=== PATIENT | male | born 1985 | race Caucasian/White ===

== ENCOUNTER → 2020-05-11 16:55 | Outpatient (CLI) | payer OTHER, SELFPAY ==
--- NOTE | ~2020-05-11 | MR_ITS ---
EXAMINATION: MR lumbar spine wo con DATE: 05/11/2020 17:46 INDICATION: Chronic right-sided low back pain with right-sided sciatica. TECHNIQUE: Magnetic resonance imaging (MRI) of the lumbar spine was performed without intravenous con trast. Sequences included sagittal T2-weighted FSE, sagittal T2-weighted FS FSE, sagittal T1-weighted FSE, and axial T2-weighted FSE. COMPARISON: None FINDINGS: There is 2 mm retrolisthesis of L4 on L5 and L5 on S1. Vertebral body heights are normal. I ntervertebral disc heights are normal. The distal spinal cord signal intensity is normal. The conus m edullaris is at L1. The following disc levels are specifically discussed: L1-L2: The disc does not extend beyond the endplate margin. There is no facet joint osteoarthritis. T here is no neural foraminal stenosis. There is no central canal stenosis. L2-L3: The disc does not extend beyond the endplate margin. There is mild bilateral facet joint osteo arthritis. There is no neural foraminal stenosis. There is no central canal stenosis. L3-L4: The disc does not extend beyond the endplate margin. There is mild bilateral facet joint osteo arthritis. There is no neural foraminal stenosis. There is no central canal stenosis. L4-L5: The disc does not extend beyond the endplate margin. There is no facet joint osteoarthritis. T here is no neural foraminal stenosis. There is no central canal stenosis. L5-S1: The disc is bulging and has an annular fissure. There is mild bilateral facet joint osteoarthr itis. There is mild left neural foraminal stenosis. There is mild central canal stenosis. IMPRESSION: 1. Mild lumbar spondylosis. Reviewed, dictated and finalized at location A. IMPRESSION: 1. Mild lumbar spondylosis.
== END ==
PROVIDERS: PCP Family Medicine; Visit Provider Orthopaedic Surgery
DX: M54.41 Lumbago with sciatica, right side (principal); G89.29 Other chronic pain; M47.896 Other spondylosis, lumbar region
CPT/HCPCS: 72148

== ENCOUNTER 2024-11-04 17:00 | Emergency (ER) | payer OTHER, SELFPAY ==
--- NOTE | ~2024-11-04 | XR_ITS ---
XR chest 2V Ordering provider: Leonardo Barton MD History: 39 years Male with . CP/heartburn . Comparison: None. FINDINGS: MEDIASTINUM: The cardiac silhouette is not enlarged. LUNGS: No infiltrates, effusions or pneumothorax. OTHER: No free air under the diaphragm. IMPRESSION: No acute cardiopulmonary pathology. Reviewed, dictated and finalized at location A.
--- NOTE | ~2024-11-04 | US_ITS ---
EXAM: ABDOMEN ULTRASOUND HISTORY: elevated LFT, epigastric pain COMPARISON: None FINDINGS: LIVER: The liver is unremarkable in echogenicity and size measuring 16 cm in longitudinal dimension. The portal vein is patent, demonstrating hepatopedal flow. GALLBLADDER: Multiple stones are identified within the gallbladder, which is otherwise unremarkable. The stones are bulky and mobile. No significant gallbladder wall thickening or pericholecystic fluid. BILE DUCTS: Common bile duct measures 4mm. PANCREAS: Limited evaluation of the pancreas secondary to overlying bowel gas IMPRESSION: Cholelithiasis, without ultrasound evidence of cholecystitis. Reviewed, dictated and finalized at location A.
--- NOTE | 2024-11-04 17:01 | ECG_ITS ---
Test Date: 2024-11-04 17:15:38 Measurements Intervals [place] Rate: 82 P: 48 [place]: 155 QRS: -5 QRSD: 100 T: 12 QT: 357 QTc: 418 Interpretive Statements SINUS RHYTHM POSSIBLE LEFT ATRIAL ENLARGEMENT INCOMPLETE RIGHT BUNDLE BRANCH BLOCK DELAYED PRECORDIAL R/S TRANSITION BORDERLINE T WAVE ABNORMALITY- INFERIOR LEADS BORDERLINE ECG No previous ECG available for comparison Electronically Signed On 11-04-2024 19:06:57 CDT by Marc Mancini D.O.
[2024-11-04 17:07] VITALS: BP 138/94; PULSE 87; RESP 16; TEMP 36.6; O2SAT 96
[2024-11-04 17:24] LABS: Basophils Percent Auto 0.2 % (0.2-1.2); Eosinophils Absolute Auto 0.1 K/mm3 (0-0.3); Eosinophils Percent Auto 0.9 % (0-4.4); Hematocrit 45.4 % (42.0-52.0); Immature Granulocyte Absolute 0.02 K/mm3 (0.00-0.031); Immature Granulocyte Percent A 0.3 % (0-0.5); Lymphocytes Percent Auto 24.7 % (18.3-44.2); Mean Corpuscular Hemoglobin 29.1 pg (26-34); Mean Platelet Volume 10.3 fl (7.4-10.4); Monocytes Absolute Auto 0.6 K/mm3 (0.1-0.6); Monocytes Percent Auto 9.7 % (2.6-8.5); Neutrophils Absolute Auto 4.2 K/mm3 (1.3-6.7); Neutrophils Percent Auto 64.2 % (45.5-73.1); Platelet Count Result 254 k/mm3 (150-375); Red Blood Count 5.16 M/mm3 (4.6-6.20); Red Cell Distribution Width 13.2 % (11.5-14.5); White Blood Count 6.5 K/mm3 (4.5-10.0)
--- OUTSIDE RECORDS SUMMARY | 2024-11-04 17:29 | XMS_ITS | Clinical Summary ---
Author Organization [address] Address [address] [place] [id number] Care Team Providers Care Wellness Instructor Name Role Phone Colin Huntley MD Primary Care Provid er Allergies No known active allergies Medications escitalopram (LEXAPRO) 10 mg tabletIndicatio ns:Generalized anxiety disorder Take 1.5 tablets (15 mg total) by mouth daily 45 tablet 11/10/2023 Active benzonatate (TESSALON) 100 mg capsuleIndicati ons:Cough Take 1 capsule (100 mg total) by mouth 3 (three) times a day as needed for cough 60 capsule 1 05/25/2024 Active tirzepatide, weight loss, (Zepbound) 5 mg/0.5 mL pen injector Inject 0.5 mL (5 mg total) under the skin every 7 days 2 mL 2 07/08/2024 Active Active Problems Problem Noted Date Diagnosed Date Acute bilateral thoracic back pain 02/11/2024 Assessment & Plan (02/11/2024 10:21 AM CDT): Seems muscular; not getting relief with OTC NSAIDs, stretching, etc. Will start Medrol dose pack and can use muscle relaxer as needed. F/u if not improving. Continue activity as tolerated. Ice/heat, stretching. Chronic right-sided low back pain 05/12/2020 Right hip pain 04/26/2020 Anxiety 09/29/2018 Encounters Date Type Department Care Team Description 11/04/2024 Telephone [facility] Family Medicine [address] [place] [phone] Colin Huntley MD from Last 3 Months Immunizations Immunization Administration Dates Next Due Hep B, Adolescent or Pediatric 11/12/1996,1995,04/15/1996 Influenza, Quadrivalent, Spl it, Preservative Free, Intramuscular 05/31/2021 Influenza, Unspecified 05/13/2024,2022(Deferred: Patient Refused),04/13/2023,04/13/2022, 020 Pfizer SARS-CoV-2 Monovalent Vaccination (12+ Yrs) PURPLE 10/25/2020,10/01/2020 Tdap 04/10/2016,12/04/2013 Surgical History Surgery Date Site/Laterality Comments TONSILLECTOMY VASECTOMY 10/12/2022 Medical History Medical History Date Comments Anxiety Lumbar facet arthropathy Retrolisthesis of vertebrae 2 mm retrolisthesis of L4 on L5 and L5 on S1 Foraminal stenosis of lumbar region Mild left L5-S1 Family History Medical History Relation Name Comments Heart attack Father Sami Hypertension Father Sami Relation Name Status Comments Father Sami Alive Mother Alive Social History Tobacco Use Types Packs/Day Years Used Date Smoking Tobacco: Never Smokeless Tobacco: Never Tobacco Cessation:Counseling Given: Not Answered Alcohol Use Standard Drinks/Week Comments Not Currently 0 (1 standard drink = 0.6 oz pur e alcohol) AUDIT-C Answer Date Recorded Q1: How often do you have a drink containing alcohol? Never 03/22/2024 Q2: How many drinks containi ng alcohol do you have on a typical day when you are drinking? Patient does not drink Q3: How often do you have si x or more drinks on one occasion? 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 Not on file Not on file Obstetrics History Last Filed Vital Signs Vital Sign Reading Time Taken Comments Blood Pressure 118/82 05/25/2024 7:02 AM SANDER WOODEN PENCILS Pulse 80 05/25/2024 7:02 AM SANDER WOODEN PENCILS Temperature 36 C (96.8 F) 05/25/2024 7:02 AM SANDER WOODEN PENCILS Respiratory Rate 18 05/25/2024 7:02 AM SANDER WOODEN PENCILS Oxygen Saturation 99% 05/25/2024 7:02 AM SANDER WOODEN PENCILS Inhaled Oxygen Concentration - - Weight 107.9 kg (237 lb 14.4 oz) 05/25/2024 7:02 AM SANDER WOODEN PENCILS Height 188 cm (6' 2 ) 05/25/2024 7:02 AM SANDER WOODEN PENCILS Body Mass Index 30.54 05/25/2024 7:02 AM SANDER WOODEN PENCILS Plan of Treatment Health Maintenance Due Date Last Done Comments Hepatitis C Screening 1985 Covid-19 Vaccine ( season) 2024 06/13/2021, 10/25/2020, 10/01/2020 Regular Well Visit/Exam 18-64 09/30/2024 10/01/2023, 05/31/2021, 05/31/2021, Additional history exists Depression Screening 03/22/2025 03/22/2024, 02/25/2024, 02/11/2024, Additional history exists DTaP/Tdap/Td Vaccine (3 - Td or Tdap) 04/10/2026 04/10/2016, 12/04/2013 Hepatitis B Screening Completed 11/12/1996 , 05/27/1996, 04/15/1996 Influenza Vaccine Completed 05/13/2024, , 04/13/2022, Additional history exists HPV Vaccines Aged Out No longer eligi ble based on patient's age to complete this topic Pneumococcal vaccine <65 Aged Out No longer eligible based on patient's age to complete this topic Varicella Vaccines Discontinued Insurance [facility] Care Teams Wellness Instructor Relationship Specialty Start Date End Date Colin Huntley MD [address] [place] [address] PCP - General Family Medicine 12/24/18
--- OUTSIDE RECORDS SUMMARY | 2024-11-04 17:29 | XMS_ITS | Encounter Summary ---
Author Organization [facility] Healthcare Address [address] [place] [address] Care Team Providers Care Generation Engineer Name Role Phone Colin Huntley MD Primary Care Provid er Encounter Details Date Type Department Care Team (Late st Contact Info) Description 11/04/2024 Telephone [facility] Family Medicine [address] [phone] Colin Huntley MD [address] [address] Social History Tobacco Use Types Packs/Day Years Used Date Smoking Tobacco: Never Smokeless Tobacco: Never Alcohol Use Standard Drinks/Week Comments Not Currently [...] on file 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 Patient was incorrectly scheduled with Dr. Rush. He does not see patients in our office to establish care. Patient's appt was cancelled and they need to reach out to the [facility] line to set up a new appointment. [phone] documented in this encounter Plan of Treatment Not on file documented as of this encounter Visit Diagnoses Not on filedocumented in this encounter Care Teams Generation Engineer Relationship Specialty Start Date End Date Colin Huntley MD [address] [place] [address] PCP - General Family Medicine 12/24/18 documented as of this encounter
--- OUTSIDE RECORDS SUMMARY | 2024-11-04 17:29 | XMS_ITS | Referral Summary ---
Author Organization [address] Address [address] [phone] Care Team Providers Care Merchandising Director Name Role Phone Colin Huntley MD Primary Care Provid er Encounters Date Type Department Care Team Description 11/04/2024 Telephone [facility] Family Medicine [address] [phone] Colin Huntley MD from Last 3 Months Allergies No known active allergies Medications escitalopram [...] 05/12/2020 Right hip pain 04/26/2020 Anxiety 09/29/2018 Immunizations Immunization Administration Dates Next Due Hep B, Adolescent or Pediatric 11/12/1996,1995,04/15/1996 Influenza, Quadrivalent, Spl it, Preservative Free, Intramuscular 05/31/2021 Influenza, Unspecified 05/13/2024,2022(Deferred: Patient Refused),04/13/2023,04/13/2022, 020 Pfizer SARS-CoV-2 Monovalent Vaccination (12+ Yrs) PURPLE 10/25/2020,10/01/2020 Tdap 04/10/2016,12/04/2013 Social History Tobacco Use Types Packs/Day Years [...] on file Legal Sex Male 9: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 Gender Identity Not on file Sexual Orientation Not on file 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 Not on file Not on file Last Filed Vital Signs Vital Sign Reading Time Taken Comments Blood Pressure 118/82 05/25/2024 7:02 AM COMMUNITY REINVESTMENT ACT OFFICER Pulse 80 05/25/2024 7:02 AM COMMUNITY REINVESTMENT ACT OFFICER Temperature 36 C (96.8 F) 05/25/2024 7:02 AM COMMUNITY REINVESTMENT ACT OFFICER Respiratory Rate 18 05/25/2024 7:02 AM COMMUNITY REINVESTMENT ACT OFFICER Oxygen Saturation 99% 05/25/2024 7:02 AM COMMUNITY REINVESTMENT ACT OFFICER Inhaled Oxygen Concentration - - Weight 107.9 kg (237 lb 14.4 oz) 05/25/2024 7:02 AM COMMUNITY REINVESTMENT ACT OFFICER Height 188 cm (6' 2 ) 05/25/2024 7:02 AM COMMUNITY REINVESTMENT ACT OFFICER Body Mass Index 30.54 05/25/2024 7:02 AM COMMUNITY REINVESTMENT ACT OFFICER Plan of Treatment Not on file Insurance [facility] Care Teams Merchandising Director Relationship Specialty Start Date End Date Colin Huntley MD [address] [place] [address] PCP - General Family Medicine 12/24/18
[2024-11-04 17:39] LABS: Alanine Aminotransferase 334 U/L (6-50); Albumin Level 4.7 g/dL (3.5-5.1); Alkaline Phosphatase 163 U/L (38-126); Anion Gap 10 mmol/L (4-12); Aspartate Amino Transferase 211 U/L (17-59); Bilirubin,Total 0.7 mg/dL (0.2-1.3); Blood Urea Nitrogen 14 mg/dL (9-20); Calcium 8.9 mg/dL (8.4-10.2); Carbon Dioxide 27 mmol/L (22-30); Chloride 102 mmol/L (98-107); Estimated CRCL calculation 103 ml/min; Estimated Glomerular Filt Rate > 60; Glucose 99 mg/dL (65-110); Lipase 62 U/L (23-300); Potassium 3.9 mmol/L (3.4-5.0); Sodium 139 mmol/L (137-145)
[2024-11-04 17:44] VITALS: BP 131/95; PULSE 82; RESP 19; O2SAT 98
[2024-11-04 17:50] LABS: Partial Thromboplastin Time 34.7 Seconds (22.3-36.8); Prothrombin Time 13.6 Seconds (11.1-14.7)
[2024-11-04 17:51] LABS: Troponin I < 0.012 ng/mL (0.000-0.034)
--- OUTSIDE RECORDS SUMMARY | 2024-11-04 18:06 | XMS_ITS | Encounter Summary ---
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 [phone] documented in this encounter Plan of Treatment Not on file documented as of this encounter Visit Diagnoses Not on filedocumented in this encounter Care Teams Closing Specialist Relationship Specialty Start Date End Date Colin Huntley MD [address] [place] [address] PCP - General Family Medicine 12/24/18 documented as of this encounter
--- OUTSIDE RECORDS SUMMARY | 2024-11-04 18:06 | XMS_ITS | Clinical Summary ---
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 Not on file Not on file Obstetrics History Last Filed Vital Signs Vital Sign Reading Time Taken Comments Blood Pressure 118/82 05/25/2024 7:02 AM SHAREPOINT DEVELOPER Pulse 80 05/25/2024 7:02 AM SHAREPOINT DEVELOPER Temperature 36 C (96.8 F) 05/25/2024 7:02 AM SHAREPOINT DEVELOPER Respiratory Rate 18 05/25/2024 7:02 AM SHAREPOINT DEVELOPER Oxygen Saturation 99% 05/25/2024 7:02 AM SHAREPOINT DEVELOPER Inhaled Oxygen Concentration - - Weight 107.9 kg (237 lb 14.4 oz) 05/25/2024 7:02 AM SHAREPOINT DEVELOPER Height 188 cm (6' 2 ) 05/25/2024 7:02 AM SHAREPOINT DEVELOPER Body Mass Index 30.54 05/25/2024 7:02 AM SHAREPOINT DEVELOPER Plan of Treatment Health Maintenance Due Date [...] complete this topic Varicella Vaccines Discontinued Insurance [facility] Care Teams Tax Commissioner Relationship Specialty Start Date End Date Colin Huntley MD [address] [place] [address] PCP - General Family Medicine 12/24/18
--- OUTSIDE RECORDS SUMMARY | 2024-11-04 18:06 | XMS_ITS | Referral Summary ---
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 Not on file Not on file Last Filed Vital Signs Vital Sign Reading Time Taken Comments Blood Pressure 118/82 05/25/2024 7:02 AM TANK TRUCK DRIVER Pulse 80 05/25/2024 7:02 AM TANK TRUCK DRIVER Temperature 36 C (96.8 F) 05/25/2024 7:02 AM TANK TRUCK DRIVER Respiratory Rate 18 05/25/2024 7:02 AM TANK TRUCK DRIVER Oxygen Saturation 99% 05/25/2024 7:02 AM TANK TRUCK DRIVER Inhaled Oxygen Concentration - - Weight 107.9 kg (237 lb 14.4 oz) 05/25/2024 7:02 AM TANK TRUCK DRIVER Height 188 cm (6' 2 ) 05/25/2024 7:02 AM TANK TRUCK DRIVER Body Mass Index 30.54 05/25/2024 7:02 AM TANK TRUCK DRIVER Plan of Treatment Not on file Insurance [facility] H[facility]/PPO Address: [address] [address] Care Teams Flash Welder Relationship Specialty Start Date End Date Colin Huntley MD [address] [place] [address] PCP - General Family Medicine 12/24/18
--- NOTE | 2024-11-04 18:51 | ED.CHESTPAIN ---
HPI - Chest Pain General Chief Complaint: Chest Pain Stated Complaint: Chest pain-heartburn yesterday/today Time Seen by Provider: 11/04/24 17:38 History of Present Illness HPI narrative: 39-year-old male with no pertinent past medical history presenting to the emergency room with chief complaint of epigastric discomfort that started last night after eating dinner including chilly. He states he took some Pepto-Bismol and Tums with some mild improvement and this morning his symptoms had resolved but he came to the ER for evaluation as he has a family history of coronary disease. No personal history of heart issues to his knowledge. He was otherwise in his normal state of health. Does not take any chronic medications. He is not any discomfort presently, no nausea, vomiting, abdominal pain, back pain, fever, chills. No loose stools or diarrhea. Related Data Allergies Allergy/AdvReac Type Severity Reaction Status Date / Time No Known Allergies Allergy Mild Verified 11/04/24 17:01 Review of Systems Review of Systems: [facility] Family History Family History Father Family history of seizure disorder Grandparent Family history of heart disease in male family member before age 55 Social History Social History Smoking status: Never smoker Alcohol intake: never Exam Narrative: GENERAL: [Well-appearing, well-nourished, and in no acute distress.] HEAD: [Normocephalic, atraumatic.] EYES: [PERRLA and EOMI.] ENT: Nares clear, no rhinorrhea or epistaxis. Mucous membranes moist. NECK: Supple. CHEST: [Clear to auscultation. No respiratory distress.] HEART: [Regular rate and rhythm]. No murmur heard. [Normal peripheral pulses.] ABDOMEN: [Soft, nondistended], [nontender], [No rigidity or guarding] EXTREMITIES: Normal range of motion. [No edema.] SKIN: Warm, dry, no rash. NEURO: [No focal deficits]. Alert and oriented [x3.] PSYCH: [Normal mood and affect.] Course Vital Signs Vital signs: Vital Signs Temperature 36.6 C 11/04/24 17:07 Pulse Rate 87 04/24/25 17:07 Respiratory Rate 16 11/04/24 17:07 Blood Pressure 138/94 H 11/04/24 17:07 Pulse Oximetry 96 11/04/24 17:07 Oxygen Delivery Room Air 11/04/24 17:07 Temperature 36.6 C 11/04/24 17:07 Pulse Rate 82 11/04/24 17:44 Respiratory Rate 19 11/04/24 17:44 Blood Pressure 131/95 H 11/04/24 17:44 Pulse Oximetry 98 11/04/24 17:44 Oxygen Delivery Room Air 11/04/24 17:07 MDM - Chest Pain MDM Narrative Medical decision making narrative: 39-year-old otherwise healthy male presenting to the emergency room with epigastric discomfort and GERD like symptoms. He took some Pepto-Bismol and Tums which did not significantly via his symptoms. He states that all throughout the night he was nauseous and vomiting. This morning he woke up without any pain but was concerned enough so he came to the ER for evaluation. No history of gallbladder stones, renal stones, heart attacks or any kind coronary disease. He is otherwise well-appearing and comfortable in the room. He states he was eating a fatty meal of chili when this triggered his pain. Suspicion presently is for cholelithiasis, cholecystitis, renal colic, gastritis, low suspicion cardiac disease or lung pathology such as pneumonia or pneumothorax. CBC, CMP, lipase, troponin, EKG and chest x-ray were obtained as well as a right upper quadrant ultrasound. Patient is presently asymptomatic. Workup shows no leukocytosis or anemia. Normal platelet count. Normal coag studies. Negative troponin. Normal renal function, normal electrolytes. LFTs are elevated. Normal bilirubin. Chest x-ray shows no acute cardiopulmonary disease. Right upper quadrant ultrasound shows gallbladder stones without any evidence of cholecystitis. Normal bile duct. EKG shows normal sinus rhythm, no ST segment elevations, depressions. Patient re-evaluated and still asymptomatic. We went over his imaging results and gallbladder stones with elevated liver function panel. Patient comfortable with going home at this time was referred to general surgery clinic for outpatient evaluation of symptomatic cholelithiasis. He was given Bentyl, ibuprofen and Zofran as needed if he has any recurrence of symptoms. Encouraged to keep a bland diet. Patient verbalized expressing understanding and was safe for discharge home. Medical Records Data Attestation: I reviewed the patient's medical records. Lab Data Attestation: I reviewed the patient's lab results. 11/04/24 17:12 11/04/24 17:12 Labs: Lab Results 11/04/24 Range/Units 17:12 WBC 6.5 (4.5-10.0) K/mm3 RBC 5.16 (4.6-6.20) M/mm3 Hgb 15.0 (14.0-18.0) g/dL Hct 45.4 (42.0-52.0) % MCV 88.0 (80-100) fl MCH 29.1 (26-34) pg MCHC 33.0 (32-36) g/dl RDW 13.2 (11.5-14.5) % Plt Count 254 (150-375) k/mm3 MPV 10.3 (7.4-10.4) fl Immature Gran % (Auto) 0.3 (0-0.5) % Neut % (Auto) 64.2 (45.5-73.1) % Lymph % (Auto) 24.7 (18.3-44.2) % [place] % (Auto) 9.7 H (2.6-8.5) % Eos % (Auto) 0.9 (0-4.4) % Baso % (Auto) 0.2 (0.2-1.2) % Lymph # (Auto) 1.60 (0.9-3.2) K/mm3 [place] # (Auto) 0.6 (0.1-0.6) K/mm3 Eos # (Auto) 0.1 (0-0.3) K/mm3 Baso # (Auto) 0.0 (0.0-0.1) K/mm3 Abs Immat Gran (auto) 0.02 (0.00-0.031) K/mm3 Absolute Neuts (auto) 4.2 (1.3-6.7) K/mm3 Absolute Nucleated RBC 0.000 (0.0-0.012) K/mm3 Nucleated RBC % 0.0 (0.0-0.2) % PT 13.6 (11.1-14.7) Seconds INR 1.0 APTT 34.7 (22.3-36.8) Seconds Sodium 139 (137-145) mmol/L Potassium 3.9 (3.4-5.0) mmol/L Chloride 102 (98-107) mmol/L Carbon Dioxide 27 (22-30) mmol/L Anion Gap 10 (4-12) mmol/L BUN 14 (9-20) mg/dL Creatinine 1.01 (0.7-1.3) mg/dL Estim Creat Clear Calc 103 ml/min Estimated GFR > 60 (59 - ) Glucose 99 (65-110) mg/dL Calcium 8.9 (8.4-10.2) mg/dL Total Bilirubin 0.7 (0.2-1.3) mg/dL AST 211 H (17-59) U/L ALT 334 H (6-50) U/L Alkaline Phosphatase 163 H (38-126) U/L Troponin I < 0.012 (0.000-0.034) ng/mL Total Protein 8.0 (6.3-8.2) g/dL Albumin 4.7 (3.5-5.1) g/dL Lipase 62 (23-300) U/L Imaging Data Attestation: I personally reviewed and interpreted this imaging study as follows: My impression: Impressions Chest X-Ray 11/04/24 17:30 IMPRESSION: No acute cardiopulmonary pathology. Abdomen Ultrasound 11/04/24 18:26 IMPRESSION: Cholelithiasis, without ultrasound evidence of cholecystitis. ECG Data EKG #1: Attestation: I personally reviewed and interpreted this ECG as follows: ECG completion date: 11/04/24 ECG completion time: 17:15 Prior ECG tracings: not available for review Interpretation: No ST segment elevations, depressions. Normal rate rhythm and axis. QTC 418, QRS 100, LA interval 155. Normal rate of 82 beats per minute. Overall interpretation normal sinus rhythm. No previous EKG for comparison. Discharge Plan Discharge Clinical Impression: Biliary colic, Gallbladder calculus without cholecystitis, Chest pain Patient Disposition: Home Condition: Stable Instructions: Antibiotic Form, Biliary Colic (ED), Gallstones (ED) Additional Instructions: Your ultrasound shows numerous gallstones in your gallbladder which is likely the cause of your symptoms last night and today. They are not infected and there is no signs of any urgent or emergent concerns but this can be a recurrent issue that might need to be addressed down the road. Stick to a bland diet for the next several days to avoid any fatty or heavy foods that can trigger this. Take the prescribed medications if you have any pain or nausea. Contact the General surgery clinic for outpatient evaluation and return to the emergency depart if you start experiencing any profound pain, developing fevers, inability to tolerate oral intake or any other concerns. Patient Language: [place] Prescriptions: New ibuprofen 800 mg tablet 800 mg PO TID PRN (Reason: pain) Qty: 30 0RF dicyclomine 20 mg tablet 20 mg PO TID PRN (Reason: abdominal pain) Qty: 14 0RF ondansetron 4 mg tablet,disintegrating 4 mg PO Q8H PRN (Reason: nausea and vomiting) Qty: 10 0RF Follow-up/Referrals: Osvaldo Rodriguez MD [Physician] - 1 Week (Symptomatic cholelithiasis) Audi,Colin Christensen MD [Primary Care Provider] - Time of Disposition: 18:48 Quality HEART score for chest pain patients History: slightly suspicious ECG: normal Age: < or = to 45 years Risk factors: no risk factors known Troponin: < or = to 1x normal limit Heart score: 0
[2024-11-04 18:58] VITALS: BP 129/95; PULSE 81; RESP 17; TEMP 36.7; O2SAT 98
== END 2024-11-04 19:00 | disposition home or self-care (01) ==
PROVIDERS: Emergency Provider Student in an Organized Health Care Education/Training Program; PCP Family Medicine
DX: K80.20 Calculus of gallbladder without cholecystitis without obstruction (principal); I45.10 Unspecified right bundle-branch block; R94.31 Abnormal electrocardiogram [ECG] [EKG]
CPT/HCPCS: 36415; 71046; 76705; 80053; 83690; 84484; 85025; 85610; 85730; 93005; 99284

== ENCOUNTER 2025-06-26 14:04 | Emergency (ER) | payer OTHER, SELFPAY ==
--- NOTE | ~2025-06-26 | XR_ITS ---
EXAMINATION: XR chest 2V, 06/26/2025 14:40 MEDICAL CLAIMS ANALYST HISTORY: CHEST TIGHTNESS X 2WKS COMPARISON: No comparisons available. Technique: 2 views obtained. Findings: The lungs are clear, no effusion. No pneumothorax. Heart is normal size. Mediastinal and hilar contours are within normal limits. Bony thorax no acute abnormality. Impression: No acute cardiopulmonary abnormality. Reviewed, dictated and finalized at location P. CAL CLAIMS ANALYST Impression: No acute cardiopulmonary abnormality.
--- NOTE | 2025-06-26 14:06 | ECG_ITS ---
Test Date: 2025-06-26 14:13:03 Measurements Intervals [place] Rate: 89 P: 37 WI: 152 QRS: -14 QRSD: 98 T: 16 QT: 354 QTc: 433 Interpretive Statements SINUS RHYTHM INCOMPLETE RIGHT BUNDLE BRANCH BLOCK DELAYED PRECORDIAL R/S TRANSITION BORDERLINE T WAVE ABNORMALITY- INFERIOR LEADS BASELINE WANDER- V2 BORDERLINE ECG Compared to ECG 11/04/2024 17:15:38 NO SIGNIFICANT CHANGE Electronically Signed On 06-26-2025 15:38:40 ELECTRICAL ENGINEERING DRAFTING OFFICER by Marc Mancini D.O.
[2025-06-26 14:09] VITALS: BP 145/105; PULSE 85; RESP 20; TEMP 36.7; O2SAT 100
[2025-06-26] MEDS: ASPIRIN 81 MG CHEWABLE TABLET 324 MG PO (14:19)
[2025-06-26 14:20] VITALS: PULSE 88
[2025-06-26 14:21] VITALS: O2SAT 97
[2025-06-26 14:29] LABS: Hematocrit 45.3 % (42.0-52.0); Hemoglobin 15.3 g/dL (14.0-18.0); Immature Granulocyte Percent A 0.4 % (0-0.5); Lymphocytes Absolute Auto 1.57 K/mm3 (0.9-3.2); Mean Corpuscular HGB Conc 33.8 g/dl (32-36); Mean Corpuscular Hemoglobin 29.2 pg (26-34); Mean Corpuscular Volume 86.5 fl (80-100); Nucleated Red Blood Cells Absolute Auto 0.000 K/mm3 (0.0-0.012); Nucleated Red Blood Cells Perc 0.0 % (0.0-0.2); Platelet Count Result 259 k/mm3 (150-375); Red Blood Count 5.24 M/mm3 (4.6-6.20); White Blood Count 4.7 K/mm3 (4.5-10.0)
--- OUTSIDE RECORDS SUMMARY | 2025-06-26 14:36 | XMS_ITS | Clinical Summary ---
Author Organization [address] Address [address] [place] [id number] Care Team Providers Care Air Tester Name Role Phone Shayy Bacon NP Primary Care Provider [phone] Allergies No known active allergies Medications escitalopram (LEXAPRO) 10 mg tabletIndicatio ns:Generalized anxiety disorder Take 1 tablet (10 mg total) by mouth every morning 30 tablet 1 5 Active escitalopram (LEXAPRO) 5 mg tabletIndicatio ns:Generalized anxiety disorder Take 1 tablet (5 mg total) by mouth nightly 30 tablet 1 5 Active escitalopram (LEXAPRO) 10 mg tabletIndicatio ns:Generalized anxiety disorder Take 1.5 tablets (15 mg total) by mouth daily 45 tablet 5 06/02/20 25 Discontinu ed(Reorder ) Active Problems Problem Noted Date Diagnosed Date BMI 28.0-28.9,adult 11/10/2024 Physical exam, annual 11/10/2024 Acute bilateral thoracic back pain 02/11/2024 Assessment [...] Encounters Date Type Department Care Team Description 06/02/2025 Telephone [facility] Medicine [address] [place] [address] Shayy Bacon NP 04/26/2025 Telephone [facility] Medicine [address] [place] [address] Shayy Bacon NP from Last 3 Months Immunizations Immunization Administration [...] stenosis of lumbar region Mild left L5-S1 Gallstones Family History Medical History Relation Name Comments No Known Problems Brother Heart attack Father Sami Hypertension Father Sami No Known Problems Mother Relation Name Status Comments Brother Alive Father Sami Alive Mother Alive Social History Tobacco Use Types Packs/Day Years Used Date Smoking Tobacco: Never Smokeless Tobacco: Never Tobacco Cessation:Counseling Given: Not Answered Alcohol Use Standard Drinks/Week Comments Not Currently 0 (1 standard drink = 0.6 oz pur e alcohol) AUDIT-C Answer Date Recorded Q1: How often do you have a drink containing alcohol? Never 11/10/2024 Q2: How many drinks containi ng alcohol do you have on a typical day when you are drinking? Patient does not drink Q3: How often do you have si x or more drinks on one occasion? 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 Not on file Not on file Not on file Last Filed Vital Signs Vital Sign Reading Time Taken Comments Blood Pressure 118/80 11/10/2024 9:29 AM CDT Pulse 84 11/10/2024 9:29 AM CDT Temperature 37 C (98.6 F) 11/10/2024 9:29 AM CDT Respiratory Rate 18 05/25/2024 7:02 AM DIGITAL TECHNICIAN Oxygen Saturation 96% 11/10/2024 9:29 AM CDT Inhaled Oxygen Concentration - - Weight 101.6 kg (224 lb) 11/10/2024 9:29 AM CDT Height 188 cm (6' 2) 11/10/2024 9:29 AM CDT Body Mass Index 28.76 11/10/2024 9:29 AM CDT Plan of Treatment Health Maintenance Due Date Last Done Comments Hepatitis C Screening 1987 HPV Vaccines (1 - 3-dose SCDM series) 2014 Covid-19 Vaccine ( season) 2025 06/13/2021, 10/25/2020, 10/01/2020 Influenza Vaccine (#1) 2025 , 04/13/2023, 04/13/2022, Additional history exists Depression Screening 11/10/2025 11/10/2024, 03/22/2024, 02/25/2024, Additional history exists Regular Well Visit/Exam 18-64 11/10/2025 11/10/2024, 10/01/2023, 05/31/2021, Additional history exists DTaP/Tdap/Td Vaccine (3 - Td or Tdap) 04/10/2026 04/10/2016, 12/04/2013 Hepatitis B Screening Completed 11/12/1996 , 05/27/1996, 04/15/1996 Pneumococcal vaccine <65 Aged Out No longer eligible based on patient's age to complete this topic Varicella Vaccines Discontinued Insurance R [facility] Care Teams Air Tester Relationship Specialty Start Date End Date Shayy Bacon NP [address] [id number] PCP - General Internal Medicine 11/10/24
[2025-06-26 14:43] LABS: Alanine Aminotransferase 21 U/L (6-50); Albumin Level 4.7 g/dL (3.5-5.1); Alkaline Phosphatase 107 U/L (38-126); Anion Gap 6 mmol/L (4-12); Aspartate Amino Transferase 24 U/L (17-59); Bilirubin,Total 0.4 mg/dL (0.2-1.3); Blood Urea Nitrogen 21 mg/dL (9-20); Calcium 9.3 mg/dL (8.4-10.2); Carbon Dioxide 26 mmol/L (22-30); Chloride 104 mmol/L (98-107); Estimated CRCL calculation 115 ml/min; Estimated Glomerular Filt Rate > 60; Glucose 93 mg/dL (65-110); Lipase 71 U/L (23-300); Potassium 4.0 mmol/L (3.4-5.0); Sodium 136 mmol/L (137-145); Total Protein 8.4 g/dL (6.3-8.2)
[2025-06-26 14:45] LABS: INR 1.0; Prothrombin Time 13.1 Seconds (11.1-14.7)
[2025-06-26 14:46] LABS: Partial Thromboplastin Time 32.7 Seconds (22.3-36.8)
[2025-06-26 14:53] LABS: Troponin I < 0.012 ng/mL (0.000-0.034)
[2025-06-26 16:22] VITALS: BP 136/93; PULSE 74; RESP 12; O2SAT 97
--- NOTE | 2025-06-26 16:36 | ECG_ITS ---
Test Date: 2025-06-26 17:04:43 Measurements Intervals [place] Rate: 72 P: 39 [place]: 161 QRS: -15 QRSD: 92 T: 5 QT: 367 QTc: 404 Interpretive Statements SINUS RHYTHM INCOMPLETE RIGHT BUNDLE BRANCH BLOCK BORDERLINE T WAVE ABNORMALITY- INFERIOR LEADS BASELINE ARTIFACT- I, II, III, AVL, AVF BORDERLINE ECG Compared to ECG 06/26/2025 14:13:03 NO SIGNIFICANT CHANGE Electronically Signed On 06-26-2025 20:06:29 SHIPPING SUPPORT by Marc Mancini D.O.
--- NOTE | 2025-06-26 17:14 | ED.CHESTPAIN ---
HPI - Chest Pain General Chief Complaint: Chest Pain Stated Complaint: CHEST TIGHTNESS X 2 WEEKS Time Seen by Provider: 06/26/25 14:10 Source: patient Mode of arrival: ambulatory Limitations: no limitations History of Present Illness HPI narrative: 40-year-old otherwise healthy here with a complains of jittery sensation in his chest occasional pain for past 1 week. Patient states that he recently started working out the started having this discomfort and he is concerned that could be heart related. He denies having any shortness of breath. No history of nausea or vomiting. Pain and jitteriness comes on randomly. Not related to his working out. complaint: chest pain Onset (ago): week(s) (1) Timing of current episode: episodic Pain location: left chest and right chest Pain radiation: none Severity: moderate Quality: tightness, aching and sharp Relieving factors: nothing Exacerbating factors: nothing Related Data Home Medications ?Medication ?Instructions ?Recorded ?Confirmed ?Last Taken ?Type escitalopram oxalate 10 mg tablet 10 mg PO DAILY 11/25/24 11/27/24 Unknown History (Lexapro) Allergies Allergy/AdvReac Type Severity Reaction Status Date / Time No Known Allergies Allergy Mild Verified 06/26/25 14:05 Review of Systems Review of Systems: All systems reviewed & are unremarkable except as noted in HPI and below Constitutional: Constitutional: Reports no additional constitutional complaints Eyes: Eyes: Reports no additional eye complaints ENT: Reports system reviewed and no additional complaints, except as documented Cardiovascular: Cardiovascular: Reports as per HPI Respiratory: Respiratory: Reports no additional respiratory complaints Gastrointestinal: Gastrointestinal: Reports no additional gastrointestinal complaints Musculoskeletal: Musculoskeletal: Reports no additional musculoskeletal complaints [facility] Past Medical History Medical History Anxiety Surgical History Surgical History History of vasectomy History of tonsillectomy Family History Family History Father Family history of seizure disorder Grandparent Family history of heart disease in male family member before age 55 Other Cerebrovascular accident Social History Social History Smoking status: Never smoker Alcohol intake: never Living arrangements: with family Occupation/Education: occupation Exam Narrative: GENERAL: Well-appearing, well-nourished, and in no acute distress. HEAD: Normocephalic, atraumatic. EYES: PERRLA and EOMI. ENT: Nares clear, no rhinorrhea or epistaxis. Mucous membranes moist. NECK: Supple. CHEST: Clear to auscultation. No respiratory distress. HEART: Regular rate and rhythm. No murmur heard. Normal peripheral pulses. ABDOMEN: Soft, nontender, nondistended, normal active bowel sounds. EXTREMITIES: Normal range of motion. No edema. SKIN: Warm, dry, no rash. NEURO: No focal deficits. Alert and oriented x3. PSYCH: Normal mood and affect. Course Course Emergency Course: Patient remained pain-free while he back informed about his EKG and down lab work. He feels comfortable going home. Cause of this pain most likely musculoskeletal. Vital Signs Vital signs: Vital Signs Temperature 36.7 C 06/26/25 14:09 Pulse Rate 85 06/26/25 14:09 Respiratory Rate 20 06/26/25 14:09 Blood Pressure 145/105 H 06/26/25 14:09 Pulse Oximetry 100 06/26/25 14:09 Oxygen Delivery Room Air 06/26/25 14:09 Temperature 36.7 C 06/26/25 14:09 Pulse Rate 74 06/26/25 16:22 Respiratory Rate 12 06/26/25 16:22 Blood Pressure 136/93 H 06/26/25 16:22 Pulse Oximetry 97 06/26/25 16:22 Oxygen Delivery Room Air 06/26/25 14:21 [facility] Narrative Medical decision making narrative: Is a 3 1 40-year-old with no major medical problems here with intermittent chest pain for the past 1 week his physical exam is unremarkable EKG showed no acute ST-T changes. Will do lab work including chest x-ray. Differential Diagnosis Differential Diagnosis: Chest wall pain, costochondritis, pneumonia, ACS Medical Records I have reviewed the following patient records and this information was taken into consideration when formulating the assessment and plan.: previous labs Lab Data [facility] Lab Attestation statement: I personally reviewed the patient's lab results. 06/26/25 14:24 06/26/25 14:24 Labs: Lab Results 06/26/25 06/26/25 Range/Units 14:24 16:41 WBC 4.7 (4.5-10.0) K/mm3 RBC 5.24 (4.6-6.20) M/mm3 Hgb 15.3 (14.0-18.0) g/dL Hct 45.3 (42.0-52.0) % MCV 86.5 (80-100) fl MCH 29.2 (26-34) pg MCHC 33.8 (32-36) g/dl RDW 12.9 (11.5-14.5) % Plt Count 259 (150-375) k/mm3 MPV 10.3 (7.4-10.4) fl Immature Gran % (Auto) 0.4 (0-0.5) % Neut % (Auto) 46.8 (45.5-73.1) % Lymph % (Auto) 33.7 (18.3-44.2) % [place] % (Auto) 16.3 H (2.6-8.5) % Eos % (Auto) 2.4 (0-4.4) % Baso % (Auto) 0.4 (0.2-1.2) % Lymph # (Auto) 1.57 (0.9-3.2) K/mm3 [place] # (Auto) 0.8 H (0.1-0.6) K/mm3 Eos # (Auto) 0.1 (0-0.3) K/mm3 Baso # (Auto) 0.0 (0.0-0.1) K/mm3 Abs Immat Gran (auto) 0.02 (0.00-0.031) K/mm3 Absolute Neuts (auto) 2.2 (1.3-6.7) K/mm3 Absolute Nucleated RBC 0.000 (0.0-0.012) K/mm3 Nucleated RBC % 0.0 (0.0-0.2) % PT 13.1 (11.1-14.7) Seconds INR 1.0 APTT 32.7 (22.3-36.8) Seconds Sodium 136 L (137-145) mmol/L Potassium 4.0 (3.4-5.0) mmol/L Chloride 104 (98-107) mmol/L Carbon Dioxide 26 (22-30) mmol/L Anion Gap 6 (4-12) mmol/L BUN 21 H (9-20) mg/dL Creatinine 1.01 (0.7-1.3) mg/dL Estim Creat Clear Calc 115 ml/min Estimated GFR > 60 (59 - ) Glucose 93 (65-110) mg/dL Calcium 9.3 (8.4-10.2) mg/dL Total Bilirubin 0.4 (0.2-1.3) mg/dL AST 24 (17-59) U/L ALT 21 (6-50) U/L Alkaline Phosphatase 107 (38-126) U/L Troponin I < 0.012 Pending (0.000-0.034) ng/mL Total Protein 8.4 H (6.3-8.2) g/dL Albumin 4.7 (3.5-5.1) g/dL Lipase 71 (23-300) U/L Imaging Data Radiologist's impression: ITS Impressions Chest X-Ray 06/26/25 14:48 Impression: No acute cardiopulmonary abnormality. ECG Data EKG #1: ECG completion date: 06/26/25 ECG completion time: 14:43 normal rate (89), sinus rhythm, no ectopy, no ST changes and no acute changes EKG #2: ECG completion date: 06/26/25 ECG completion time: 17:04 normal rate (72), sinus rhythm, no ectopy, no ST changes, normal QRS, normal QT, NL axis and no acute changes Discharge Plan Discharge Clinical Impression: Chest pain Qualifiers: Chest pain type: unspecified Qualified Code(s): R07.9 - Chest pain, unspecified Patient Disposition: Home Condition: Stable Instructions: Chest Pain (ED) Patient Language: [place] Prescriptions: No Action escitalopram oxalate [Lexapro] 10 mg tablet 10 mg PO DAILY Follow-up/Referrals: Arleen,LUZMA Lucas [Primary Care Provider, Unknown] Time of Disposition: 17:15
[2025-06-26 17:16] LABS: Troponin I < 0.012 ng/mL (0.000-0.034)
[2025-06-26 17:21] VITALS: BP 122/93; PULSE 74; RESP 20; O2SAT 97
== END 2025-06-26 17:24 | disposition home or self-care (01) ==
PROVIDERS: Emergency Provider Family Medicine; PCP Nurse Practitioner Family
DX: R07.89 Other chest pain (principal); F41.9 Anxiety disorder, unspecified; Z79.899 Other long term (current) drug therapy; I45.10 Unspecified right bundle-branch block; R94.31 Abnormal electrocardiogram [ECG] [EKG]
CPT/HCPCS: 36415; 71046; 80053; 83690; 84484; 85025; 85610; 85730; 93005; 99284; A9270